=== PATIENT | male | born 1995 | race American Indian/Alaskan Native ===

== ENCOUNTER 2018-08-03 12:37 | Emergency (ER) | payer BC ==
[2018-08-03 12:42] VITALS: BP 142/100
--- NOTE | 2018-08-03 15:11 | Emergency Department Report ---
Abscess Boil HPI - HPI Chief Complaint: Skin/Abscess/Foreign Body Stated Complaint: BOIL ON INNER RT THIGH/DIABETIC Time Seen by Provider: 08/03/18 15:07 Duration: 1 Week History: Yes Pain, Yes Purulent Drainage, No Fever, No Numbness, No Foreign Body, No Previous History, No Insect Bite HPI: T3-year-old -[place] male with a history of diabetes type 1 comes in for an abscess to the right inner thigh for a week. Patient reports that it has been draining since last night. Patient's blood sugar at home was 143 was 45 minutes prior to arrival. Patient states he is compliant with his medications. Patient reports he has had a history of both in the past. Patient is currently on Humalog and Tresceba. Home Medications: Previous Rx's Medication Instructions Recorded Last Taken Type Ibuprofen [Motrin 600 MG tab] 600 mg PO Q8H PRN #15 tablet 08/03/18 Unknown Rx cephALEXin [Keflex] 500 mg PO Q12HR #20 cap 08/03/18 Unknown Rx Allergies/Adverse Reactions: Allergies Allergy/AdvReac Type Severity Reaction Status Date / Time azithromycin [From Zithromax] Allergy Hives Verified 08/03/18 12:39 mycins Allergy Hives Uncoded 08/03/18 12:39 tape AdvReac Rash Uncoded 08/03/18 12:39 ED Review of Systems ROS: Stated complaint: BOIL ON INNER RT THIGH/DIABETIC Other details as noted in HPI Comment: All other systems reviewed and negative Constitutional: denies: fever Skin: lesions (boil right inner thigh) ED Past Medical Hx - Past Medical History Hx Diabetes: Yes - Surgical History Past Surgical History?: No - Social History Smoking Status: Current Every Day Smoker Substance Use Type: Alcohol - Medications Home Medications: Home Medications Medication Instructions Recorded Confirmed Last Taken Type Ibuprofen [Motrin 600 MG tab] 600 mg PO Q8H PRN #15 tablet 08/03/18 Unknown Rx cephALEXin [Keflex] 500 mg PO Q12HR #20 cap 08/03/18 Unknown Rx ED Abscess Boil Physical Exam - Exam General: Vital signs noted. No distress. Alert and acting appropriately. Size: 2 cm Exam: Yes Fluctuance (mild), Yes Normal Neurologic Exam, Yes Normal Circulation, No Tenderness, No Surrounding Cellulites/Erythema ED Course Vital Signs 04/27/19 12:41 Temperature 97.8 F Pulse Rate 94 H Respiratory 16 Rate Blood Pressure 142/100 O2 Sat by Pulse 100 Oximetry Critical care attestation.: If time is entered above; I have spent that time in minutes in the direct care of this critically ill patient, excluding procedure time. ED Medical Decision Making - Medical Decision Making Patient has been evaluated by this provider in fast track. I discussed the patient that the boy was not ready to be lanced. Also discussed the patient that I'll place him on antibiotics Keflex 500 mg twice a day for 10 days and that he will need to follow up with primary care provider I will refer patient to Dr. raquel garvin since he does not have a primary care provider at this moment since patient has recently relocated. Patient verbalized understanding. ED Disposition Clinical Impression: Abscess of right thigh Disposition: DC-01 TO HOME OR SELFCARE Is pt being admited?: No Does the pt Need Aspirin: No Condition: Stable Instructions: Abscess (ED) Additional Instructions: Complete antibiotics as prescribed. Continue with her chronic medications. Ibuprofen for pain management. Increase her water intake while taking medicati ons. Follow-up with Dr. raquel garvin primary care provider. Prescriptions: cephALEXin [Keflex] 500 mg PO Q12HR #20 cap Ibuprofen [Motrin 600 MG tab] 600 mg PO Q8H PRN #15 tablet PRN Reason: Pain Referrals: ROMAN MCADAMS MD [Staff Physician] - 3-5 Days Forms: Work/School Release Form(ED)
== END 2018-08-03 15:19 | disposition home or self-care (01) ==
LOC: ED 12:37
DX: L02.415 Cutaneous abscess of right lower limb (principal); E11.9 Type 2 diabetes mellitus without complications; F17.200 Nicotine dependence, unspecified, uncomplicated; Z91.09 Other allergy status, other than to drugs and biological substances; Z88.0 Allergy status to penicillin
CPT/HCPCS: 99283